=== PATIENT | male | born 1990 | race Two or more races ===

== ENCOUNTER 2017-08-11 22:27 | Emergency (ER) | payer SELFPAY ==
[~2017-08-11] VITALS: Ht 182.9 cm; Wt 83.0 kg
[2017-08-11 22:42] VITALS: BP 145/91
== END 2017-08-12 00:24 | disposition left against medical advice (07) ==
LOC: ER 22:27
DX: R07.81 Pleurodynia (principal); Z53.21 Procedure and treatment not carried out due to patient leaving prior to being seen by health care provider
CPT/HCPCS: 71250; 72125